=== PATIENT | female | born 1985 | race Caucasian/White ===

== ENCOUNTER 2017-06-04 08:40 | Emergency (ER) | payer BC, SELFPAY ==
--- NOTE | 2017-06-04 09:14 | RAD ---
PORTABLE AP CHEST XRAY: DATE: 06/04/17. HISTORY: Cough, flu-like symptoms. COMPARISON: 07/07/14. FINDINGS: Cardiac silhouette and pulmonary vasculature are within normal limits. The lungs remain clear. Ther e has been no interval change from the prior study. IMPRESSION: No acute cardiopulmonary process. POS: [facility]
[2017-06-04] MEDS ORDERED: Ibuprofen 800 MG TAB ONE (09:26)
[2017-06-04] MEDS ORDERED: Acetaminophen 500 MG TAB ONE (09:26)
[2017-06-04 09:56] LABS: #Lymphocytes 0.5 thou/uL (1.20-3.40); #Monocytes 0.4 thou/uL (0.11-0.59); #Neutrophils 12.2 thou/uL (1.40-6.50); %Basophils 0.1 % (0.0-1.0); %Eosinophils 0.2 % (0.0-10.0); %Lymphocytes 3.9 % (21.0-51.0); %Neutrophils 92.8 % (42.0-75.0); Hemoglobin 14.4 g/dL (12.0-16.0); Mean Corpuscular HGB CONC 32.4 g/dL (32.0-36.0); Mean Corpuscular Hemoglobin 29.2 pg (27.0-31.0); Mean Corpuscular Volume 90.2 fl (81.0-99.0); Mean Platelet Volume 8.5 fL (7.4-10.4); Platelet Count 229 thou/uL (130-400); Red Blood Cell (RBC) Count 4.95 mill/uL (4.20-5.40); White Blood Cell (WBC) Count 13.2 thou/uL (4.8-10.8)
[2017-06-04 10:13] LABS: ALT (SGPT) 11 U/L (8-55); AST (SGOT) 10 U/L (5-34); Albumin 4.1 g/dL (3.5-5.0); Alkaline Phosphatase 116 U/L (40-150); Anion Gap 13 mmol/L (10-20); BUN (Urea Nitrogen) 7 mg/dL (7.0-18.7); Bilirubin, Total 0.4 mg/dL (0.2-1.2); Calc. Creatinine Clearance 0 mL/min (70-130); Calcium 9.4 mg/dL (7.8-10.44); Carbon Dioxide 21 mmol/L (22-29); Chloride 104 mmol/L (98-107); Estimated GFR-MDRD Greater than 90; Globulin 3.9 g/dL (2.4-3.5); Glucose 124 mg/dL (70-105); Sodium 134 mmol/L (136-145)
[2017-06-04] MEDS ORDERED: Ondansetron HCl/PF 4 MG/2 ML Vial ONE (11:32)
== END 2017-06-04 11:35 | disposition home or self-care (01) ==
LOC: ERS 08:40
DX: E86.0 Dehydration (principal); B34.9 Viral infection, unspecified
CPT/HCPCS: 36415; 71045; 80053; 85025; 93005; 96361; 96374; J2405

== ENCOUNTER 2017-08-28 09:50 | Emergency (ER) | payer BC ==
[2017-08-28 11:07] LABS: Bilirubin Negative (Negative); Blood, Urine Negative (Negative); Glucose, Urine (Dipstick) Negative (Negative); Leukocyte Trace (Negative); Nitrite Negative (Negative); Protein, Urine (Dipstick) Negative (Neg-Trace); Urobilinogen 0.2 mg/dL (0.2-1.0)
--- NOTE | 2017-08-28 11:07 | RAD ---
FRONTAL RADIOGRAPH CHEST: DATE: 08/28/17. COMPARISON: 06/04/17. HISTORY: Dizziness, weakness, chest pain. FINDINGS: There is no pneumothorax or pleural fluid. There is no focal consolidation or alveolar edema. Heart and mediastinal contours appear grossly unremarkable. Osseous structures appear intact. IMPRESSION: No acute findings. POS: [facility]
[2017-08-28 11:09] LABS: Clarity Clear (Clear)
[2017-08-28 11:27] LABS: Bacteria/HPF 1+ HPF (None Seen); Hyaline Casts/LPF NONE SEEN LPF (0-3 Hyaline); RBC/HPF 0-3 HPF (0-3)
[2017-08-28 11:37] LABS: #Basophils 0.1 thou/uL (0.0-0.2); #Eosinphils 0.2 thou/uL (0.0-0.7); #Lymphocytes 2.3 thou/uL (1.20-3.40); #Monocytes 0.7 thou/uL (0.11-0.59); #Neutrophils 10.8 thou/uL (1.40-6.50); %Basophils 0.4 % (0.0-1.0); %Eosinophils 1.5 % (0.0-10.0); %Lymphocytes 16.4 % (21.0-51.0); %Monocytes 4.9 % (0.0-10.0); %Neutrophils 76.8 % (42.0-75.0); Hemoglobin 15.5 g/dL (12.0-16.0); Mean Corpuscular HGB CONC 33.2 g/dL (32.0-36.0); Mean Corpuscular Hemoglobin 29.2 pg (27.0-31.0); Mean Corpuscular Volume 88.1 fl (81.0-99.0); Mean Platelet Volume 9.5 fL (7.4-10.4); Platelet Count 284 thou/uL (130-400); RBC Distribution Width 13.2 % (11.5-14.5); White Blood Cell (WBC) Count 14.1 thou/uL (4.8-10.8)
[2017-08-28 12:05] LABS: CKMB 0.5 ng/mL (0-6.6); Troponin I Less than 0.010 ng/mL (< 0.028)
[2017-08-28 12:06] LABS: ALT (SGPT) 10 U/L (8-55); AST (SGOT) 9 U/L (5-34); Albumin 4.3 g/dL (3.5-5.0); Alkaline Phosphatase 123 U/L (40-150); Anion Gap 13 mmol/L (10-20); BUN (Urea Nitrogen) 14 mg/dL (7.0-18.7); Bilirubin, Total 0.3 mg/dL (0.2-1.2); Calc. Creatinine Clearance 0 mL/min (70-130); Carbon Dioxide 24 mmol/L (22-29); Chloride 104 mmol/L (98-107); Estimated GFR-MDRD Greater than 90; Globulin 4.1 g/dL (2.4-3.5); Glucose 99 mg/dL (70-105); Potassium 4.3 mmol/L (3.5-5.1); Protein, Total 8.4 g/dL (6.0-8.3); Sodium 137 mmol/L (136-145)
[2017-08-28 12:21] LABS: BHCG - Serum Negative (NEGATIVE); Pregs Control Background? CLEAR/WHITE (CLR/WHITE); Pregs Control Bar Appear? YES (CONTROL BAR)
[2017-08-28] MEDS ORDERED: Meclizine HCl 25 MG TAB ONE (12:29)
== END 2017-08-28 13:57 | disposition home or self-care (01) ==
LOC: ERS 09:50
DX: R42 Dizziness and giddiness (principal); I10 Essential (primary) hypertension; E66.9 Obesity, unspecified
CPT/HCPCS: 71045; 80053; 81003; 81015; 82553; 84484; 84703; 85025; 85379; 87086; 93005; 96360

== ENCOUNTER 2019-01-31 15:26 | Outpatient (CLI) | payer OTHER ==
--- NOTE | 2019-01-31 15:56 | ULT ---
Thyroid ultrasound: 01/31/2019 HISTORY: 34-year-old female with a history of surgical removal of the thyroid isthmus and right thyro id lobe. Evaluate for thyroid nodule TECHNIQUE: Multiplanar grayscale sonographic imaging of the thyroid gland obtained. FINDINGS: The isthmus and right lobe of the thyroid gland are absent, consistent with the patient's s urgical history. The left lobe measures 3.3 x 5.3 x 3.0 cm. There is a complex dominant solid and cystic mass within the mid/lower aspect of the left lobe of the thyroid gland measuring 2.9 x 3.9 x 2 .9 cm. It demonstrates peripheral soft tissue component with internal blood flow. No associated calcification. IMPRESSION: TI-RADS Category 4 lesion (moderately suspicious) within the left lobe. Given size greate r than 1.5 cm, fine-needle aspiration advised.
== END 2019-01-31 15:27 | disposition home or self-care (01) ==
LOC: BICULT 15:26
PROVIDERS: ATTEND Family Medicine
DX: E04.1 Nontoxic single thyroid nodule (principal)
CPT/HCPCS: 76536

== ENCOUNTER 2019-03-25 11:53 | Day surgery (SDC) | payer OTHER ==
[2019-03-24 16:17] VITALS: BMI 70.9
[2019-03-25] MEDS ORDERED: Sodium Bicarbonate 2.5 MEQ/5 ML VIAL ONE (11:58)
--- NOTE | 2019-03-25 13:06 | ULT ---
Thyroid mass fine needle aspiration sonographic guided HISTORY: Left thyroid lobe mass. FINDINGS: After explaining the procedure and answering all questions, sonographic evaluation again sh ows a large complex left thyroid lobe mass. Sterile technique, buffered local anesthesia, sonographic guidance, and a lateral approach were used to carefully advance a 25-gauge needle into the complex left thyroid lobe mass. A total of 4 aspirates were obtained and submitted to pathology for processing. Postprocedure imaging shows no oneyda dence of complication. Patient tolerated the procedure well and was dismissed in good condition. IMPRESSION: Technically successful sonographic guided FNA left thyroid lobe mass. Pathology is pendin g.
== END 2019-03-25 12:45 | disposition home or self-care (01) ==
LOC: ULT 11:53
PROVIDERS: ATTEND Specialist
PROC: 0G9G3ZX Drainage of Left Thyroid Gland Lobe, Percutaneous Approach, Diagnostic (ICD-10-PCS; principal; 2019-03-25)
DX: E04.1 Nontoxic single thyroid nodule (principal); E11.9 Type 2 diabetes mellitus without complications; F41.9 Anxiety disorder, unspecified; F32.9 Major depressive disorder, single episode, unspecified; Z88.0 Allergy status to penicillin; Z88.8 Allergy status to other drugs, medicaments and biological substances
CPT/HCPCS: 60100; 76942; 88173

== ENCOUNTER 2021-04-28 17:00 | Inpatient (IN) | payer OTHER, SELFPAY ==
[2021-04-26 11:35] VITALS: BMI 75.3
[2021-05-05] MEDS ORDERED: Xylocaine 1% w/ Epi 1:100K 10 ML VIAL ONE (06:53)
[2021-05-05] MEDS ORDERED: Bupivacaine 0.25% HCL 30 ML VIAL ONE (06:53)
[2021-05-05] MEDS ORDERED: Fentanyl 100 MCG/2 ML VIAL ONE ×3 (07:00→10:38)
[2021-05-05] MEDS ORDERED: SUGAMMADEX SODIUM 200 MG/2 ML VIAL ONE ×2 (07:00→07:34)
[2021-05-05] MEDS ORDERED: Ketamine 50 MG/ML (10ML VIAL) ONE (07:00)
[2021-05-05] MEDS ORDERED: Levofloxacin 500 mg/D5W 100 ml Premix Bag ONE (07:29)
[2021-05-05] MEDS ORDERED: Lidocaine 1% PF 5 ML VIAL ONE (07:46)
[2021-05-05] MEDS ORDERED: PROPOFOL 200 MG/20 ML VIAL ONE (07:46)
[2021-05-05] MEDS ORDERED: Rocuronium Bromide 10 MG/ML (10ML VIAL) ONE (07:46)
[2021-05-05] MEDS ORDERED: Ketorolac Tromethamine 30 MG/ML VIAL ONE (07:46)
[2021-05-05] MEDS ORDERED: PHENYLEPHRINE-NS 100 MCG/ML 10 ML SYRINGE ONE (07:46)
[2021-05-05] MEDS ORDERED: ePHEDrine 50 MG/ML VIAL ONE (07:46)
[2021-05-05] MEDS ORDERED: Ondansetron PF 4 MG/2 ML Vial ONE (07:46)
[2021-05-05] MEDS ORDERED: Glycopyrrolate 0.2 MG/ML 5 ML SYRINGE ONE (07:46)
[2021-05-05] MEDS ORDERED: Promethazine HCl 25 MG/ML VIAL IVPB PRN (08:54)
[2021-05-05] MEDS ORDERED: Promethazine HCl 25 MG/ML VIAL IM PRN ×2 (08:54→09:24)
[2021-05-05] MEDS ORDERED: Ondansetron HCl/PF 4 MG/2 ML Vial IVP PRN (08:54)
[2021-05-05] MEDS ORDERED: diphenhydrAMINE 50 MG/ML VIAL IM PRN (09:24)
[2021-05-05] MEDS ORDERED: diphenhydrAMINE 50 MG/ML VIAL IVP PRN ×2 (09:24→12:00)
[2021-05-05] MEDS ORDERED: Naloxone HCl 0.4 mg/ml Vial IV PRN (09:24)
[2021-05-05] MEDS ORDERED: fentaNYL Citrate/PF 2,000 MCG in Sodium Chloride 0.9% 60 ML IV PRN (09:24)
[2021-05-05] MEDS ORDERED: diphenhydrAMINE 25 MG CAP PO PRN (09:24)
[2021-05-05] MEDS ORDERED: Zolpidem Tartrate 5 MG TAB PO PRN (09:24)
[2021-05-05] MEDS ORDERED: Promethazine HCl 25 MG/ML VIAL ONE (09:26)
[2021-05-05] MEDS ORDERED: Communication Order-Pharmacy FS PRN (09:30)
[2021-05-05] MEDS ORDERED: Hydrocodone-Acetamin 15 ML UDCUP PO PRN (12:00)
[2021-05-05] MEDS ORDERED: Dextrose 5% in Water 1,000 ML IV PRN (12:00)
[2021-05-05] MEDS ORDERED: Dextrose 50% Abboject 50 ML SYRINGE SLOW IVP PRN ×2 (12:00)
[2021-05-05] MEDS ORDERED: Ondansetron PF 4 MG/2 ML Vial IVP PRN (12:00)
[2021-05-05] MEDS ORDERED: hydrALAZINE 20 MG/ML VIAL SLOW IVP PRN (12:00)
[2021-05-05] MEDS: Sodium Chloride 0.9% 1,000 ML IV SCH (12:21)
[2021-05-05] MEDS: Ondansetron PF 4 MG/2 ML Vial IVP PRN ×2 (12:21→18:11)
[2021-05-05] MEDS: Promethazine HCl 25 MG/ML VIAL IM PRN ×2 (15:17→22:23)
[2021-05-05] MEDS: HumaLOG 300 UNITS/3 ML VIAL SC PRN ×2 (15:57→22:23)
[2021-05-05 16:26] LABS: Hemoglobin 12.4 g/dL (12.0-16.0)
[2021-05-05] MEDS ORDERED: Enoxaparin Sodium 40 MG/0.4 ML SYRINGE SC SCH (21:00)
[2021-05-05] MEDS ORDERED: Fentanyl 100 MCG/2 ML VIAL SLOW IVP PRN (22:05)
[2021-05-05] MEDS ORDERED: Pantoprazole 40 MG VIAL IVP SCH (22:15)
[2021-05-06] MEDS: Sodium Chloride 0.9% 1,000 ML IV SCH (02:31)
[2021-05-06] MEDS: HumaLOG 300 UNITS/3 ML VIAL SC PRN ×2 (06:05→11:39)
[2021-05-06] MEDS: Ondansetron PF 4 MG/2 ML Vial IVP PRN ×2 (06:06→10:47)
[2021-05-06] MEDS: Hydrocodone-Acetamin 15 ML UDCUP PO PRN ×3 (06:06→16:06)
[2021-05-06 06:45] LABS: #Eosinphils 0.1 thou/uL (0.0-0.7); #Lymphocytes 2.2 thou/uL (1.20-3.40); #Monocytes 1.4 thou/uL (0.11-0.59); #Neutrophils 15.3 thou/uL (1.40-6.50); %Basophils 0.1 % (0.0-1.0); %Eosinophils 0.3 % (0.0-10.0); %Lymphocytes 11.7 % (21.0-51.0); %Monocytes 7.3 % (0.0-10.0); %Neutrophils 80.6 % (42.0-75.0); Hemoglobin 11.3 g/dL (12.0-16.0); Mean Corpuscular HGB CONC 31.8 g/dL (32.0-36.0); Mean Corpuscular Hemoglobin 28.6 pg (27.0-31.0); Mean Corpuscular Volume 89.9 fL (78.0-98.0); Mean Platelet Volume 9.8 fL (7.4-10.4); Platelet Count 277 thou/uL (130-400); RBC Distribution Width 13.6 % (11.5-14.5); Red Blood Cell (RBC) Count 3.94 mill/uL (4.20-5.40)
[2021-05-06 07:04] LABS: Anion Gap 13 mmol/L (10-20); BUN (Urea Nitrogen) 10 mg/dL (7.0-18.7); Calc. Creatinine Clearance 309 mL/min (70-130); Calcium 8.9 mg/dL (7.8-10.44); Carbon Dioxide 16 mmol/L (22-29); Chloride 111 mmol/L (98-107); Glucose 229 mg/dL (70-105); Potassium 4.3 mmol/L (3.5-5.1); Sodium 136 mmol/L (136-145)
[2021-05-06] MEDS ORDERED: Pantoprazole 40 MG VIAL IVP SCH (09:00)
[2021-05-06] MEDS ORDERED: Fluticasone Propionate Nasal Spray 16 gm Bottle NASAL SCH (09:00)
[2021-05-06 16:05] VITALS: BP 163/87; TEMP 98.8
[2021-05-06] MEDS ORDERED: Enoxaparin Sodium 40 MG/0.4 ML SYRINGE SC SCH (21:00)
== END 2021-05-06 16:41 | disposition home or self-care (01) | DRG 621 ==
LOC: SURG A 05-05 05:53
PROVIDERS: ADMIT Surgery; ATTEND Surgery
PROC: 0DB64Z3 Excision of Stomach, Percutaneous Endoscopic Approach, Vertical (ICD-10-PCS; principal; 2021-05-05)
PROC: 8E0W4CZ Robotic Assisted Procedure of Trunk Region, Percutaneous Endoscopic Approach (ICD-10-PCS; 2021-05-05)
DX: E66.01 Morbid (severe) obesity due to excess calories (principal); Z68.45 Body mass index [BMI] 70 or greater, adult; Z20.822 Contact with and (suspected) exposure to COVID-19; I10 Essential (primary) hypertension; F41.9 Anxiety disorder, unspecified; E11.9 Type 2 diabetes mellitus without complications; E89.0 Postprocedural hypothyroidism; Z90.49 Acquired absence of other specified parts of digestive tract; Z79.899 Other long term (current) drug therapy; Z79.51 Long term (current) use of inhaled steroids; Z80.9 Family history of malignant neoplasm, unspecified; Z88.8 Allergy status to other drugs, medicaments and biological substances
CPT/HCPCS: 36415; 36416; 80048; 85014; 85018; 85025; 88307; 88342; 93005; 93010; C9113; J1650; J1815; J1885; J1956; J2405; J2550; J2704; J3010; J3490; J7050; S0020

== ENCOUNTER 2021-05-02 17:14 | Outpatient (CLI) | payer SELFPAY ==
[2021-05-03 17:56] LABS: SARS-CoV-2 PCR by NAA Not Detected (NotDetected)
== END 2021-05-02 17:15 | disposition home or self-care (01) ==
LOC: LABBT 17:14
PROVIDERS: ATTEND Surgery
DX: Z01.818 Encounter for other preprocedural examination (principal); E66.01 Morbid (severe) obesity due to excess calories; Z20.822 Contact with and (suspected) exposure to COVID-19
CPT/HCPCS: U0003; U0005

== ENCOUNTER 2021-05-11 02:44 | Emergency (ER) | payer OTHER, SELFPAY ==
[2021-05-11 03:31] LABS: #Eosinphils 0.2 thou/uL (0.0-0.7); #Lymphocytes 1.8 thou/uL (1.20-3.40); #Monocytes 0.9 thou/uL (0.11-0.59); #Neutrophils 11.7 thou/uL (1.40-6.50); %Basophils 0.1 % (0.0-1.0); %Eosinophils 1.5 % (0.0-10.0); %Lymphocytes 12.5 % (21.0-51.0); %Monocytes 6.1 % (0.0-10.0); %Neutrophils 79.9 % (42.0-75.0); Hemoglobin 10.8 g/dL (12.0-16.0); Mean Corpuscular HGB CONC 33.1 g/dL (32.0-36.0); Mean Corpuscular Hemoglobin 29.2 pg (27.0-31.0); Mean Corpuscular Volume 88.2 fL (78.0-98.0); Mean Platelet Volume 9.2 fL (7.4-10.4); Platelet Count 294 thou/uL (130-400); RBC Distribution Width 13.4 % (11.5-14.5); White Blood Cell (WBC) Count 14.7 thou/uL (4.8-10.8)
[2021-05-11] MEDS ORDERED: Morphine 4 MG/ML VIAL ONE ×2 (03:46→06:25)
[2021-05-11 03:51] LABS: ALT (SGPT) 16 U/L (8-55); AST (SGOT) 13 U/L (5-34); Albumin 3.6 g/dL (3.5-5.0); Alkaline Phosphatase 121 U/L (40-110); Anion Gap 15 mmol/L (10-20); BUN (Urea Nitrogen) 8 mg/dL (7.0-18.7); Bilirubin, Total 1.2 mg/dL (0.2-1.2); Calc. Creatinine Clearance 0 mL/min (70-130); Calcium 9.1 mg/dL (7.8-10.44); Carbon Dioxide 23 mmol/L (22-29); Chloride 104 mmol/L (98-107); Globulin 2.9 g/dL (2.4-3.5); Glucose 171 mg/dL (70-105); Potassium 3.5 mmol/L (3.5-5.1); Protein, Total 6.5 g/dL (6.0-8.3); Sodium 138 mmol/L (136-145)
[2021-05-11] MEDS ORDERED: Furosemide 40 MG/4 ML VIAL ONE (05:43)
[2021-05-11] MEDS ORDERED: Nitroglycerin 50 MG/250 ML BOT 250 ML ONE (05:43)
[2021-05-11 07:24] LABS: Troponin I Less than 0.010 ng/mL (< 0.028)
== END 2021-05-11 09:21 | disposition short-term general hospital (02) ==
LOC: ERS 02:44
DX: R07.9 Chest pain, unspecified (principal); I10 Essential (primary) hypertension; E66.9 Obesity, unspecified
CPT/HCPCS: 36415; 71045; 80053; 84484; 85025; 93005; 93970; 96374; 96376; J1940; J2270

== ENCOUNTER 2021-05-11 15:40 | Observation (INO) | payer OTHER ==
[2021-05-11] MEDS ORDERED: Dextrose 50% Abboject 50 ML SYRINGE SLOW IVP PRN (20:00)
[2021-05-11] MEDS ORDERED: Dextrose 5% in Water 1,000 ML IV PRN (20:00)
[2021-05-11] MEDS ORDERED: hydrALAZINE 20 MG/ML VIAL SLOW IVP PRN (20:00)
[2021-05-11] MEDS ORDERED: Promethazine HCl 25 MG/ML VIAL IM PRN (20:00)
[2021-05-11] MEDS ORDERED: Acetaminophen 325 MG TAB PO PRN (20:00)
[2021-05-11] MEDS ORDERED: HumaLOG 300 UNITS/3 ML VIAL SC PRN (20:00)
[2021-05-11] MEDS: Enoxaparin Sodium 40 MG/0.4 ML SYRINGE SC SCH (20:24)
[2021-05-11] MEDS: Sodium Chloride 0.9% 1,000 ML IV SCH (20:24)
[2021-05-11] MEDS: Ondansetron PF 4 MG/2 ML Vial IVP PRN (20:25)
[2021-05-11] MEDS: Morphine 4 MG/ML VIAL SLOW IVP PRN ×2 (20:25→23:14)
[2021-05-11 20:32] VITALS: BMI 74.9
[2021-05-11] MEDS: Hydrocodone-Acetamin 15 ML UDCUP PO PRN (21:26)
[2021-05-12] MEDS: Ondansetron PF 4 MG/2 ML Vial IVP PRN ×3 (02:19→23:54)
[2021-05-12] MEDS: Morphine 4 MG/ML VIAL SLOW IVP PRN ×5 (02:19→23:54)
[2021-05-12] MEDS: Hydrocodone-Acetamin 15 ML UDCUP PO PRN ×3 (03:46→19:16)
[2021-05-12] MEDS: Acetaminophen 650 MG/20.3 ML UDCUP PO PRN ×2 (06:58→20:44)
[2021-05-12 07:18] LABS: #Eosinphils 0.3 thou/uL (0.0-0.7); #Lymphocytes 1.5 thou/uL (1.20-3.40); #Monocytes 0.7 thou/uL (0.11-0.59); #Neutrophils 8.8 thou/uL (1.40-6.50); %Basophils 0.3 % (0.0-1.0); %Eosinophils 2.4 % (0.0-10.0); %Monocytes 6.4 % (0.0-10.0); Mean Corpuscular HGB CONC 32.6 g/dL (32.0-36.0); Mean Corpuscular Volume 88.8 fL (78.0-98.0); Mean Platelet Volume 9.4 fL (7.4-10.4); Platelet Count 285 thou/uL (130-400); RBC Distribution Width 13.4 % (11.5-14.5); Red Blood Cell (RBC) Count 3.45 mill/uL (4.20-5.40); White Blood Cell (WBC) Count 11.3 thou/uL (4.8-10.8)
[2021-05-12 07:23] LABS: Anion Gap 12 mmol/L (10-20); BUN (Urea Nitrogen) 7 mg/dL (7.0-18.7); Calc. Creatinine Clearance 372 mL/min (70-130); Calcium 9.2 mg/dL (7.8-10.44); Carbon Dioxide 24 mmol/L (22-29); Chloride 105 mmol/L (98-107); Glucose 155 mg/dL (70-105); Potassium 3.3 mmol/L (3.5-5.1); Sodium 138 mmol/L (136-145)
[2021-05-12] MEDS: Fluticasone Propionate Nasal Spray 16 gm Bottle NASAL SCH (08:51)
[2021-05-12] MEDS: Enoxaparin Sodium 40 MG/0.4 ML SYRINGE SC SCH ×2 (08:51→20:44)
[2021-05-12] MEDS: Sodium Chloride 0.9% 1,000 ML IV SCH ×2 (08:51→23:54)
[2021-05-12] MEDS: Pantoprazole 40 MG VIAL IVP SCH (08:52)
[2021-05-12 15:50] LABS: Bacteria/HPF None Seen HPF (None Seen); Bilirubin 1+ (Negative); Blood, Urine Trace (Negative); Clarity Turbid (Clear); Glucose, Urine (Dipstick) Normal (Negative); Ketone, Urine 40 mg/dL (Negative); Leukocyte 75 Leu/uL (Negative); Nitrite Negative (Negative); Protein, Urine (Dipstick) 70 mg/dL (Neg-Trace); RBC/HPF 0-3 HPF (0-3); Specific Gravity, Urine 1.031 (1.002-1.036); Squamous Epithelial 21-50 HPF (0-3)
[2021-05-12] MEDS: Cyclobenzaprine 10 MG TAB PO PRN (18:09)
[2021-05-13] MEDS: Cyclobenzaprine 10 MG TAB PO PRN ×2 (02:30→12:26)
[2021-05-13] MEDS: Hydrocodone-Acetamin 15 ML UDCUP PO PRN (04:43)
[2021-05-13] MEDS: Morphine 4 MG/ML VIAL SLOW IVP PRN (07:12)
[2021-05-13] MEDS: Fluticasone Propionate Nasal Spray 16 gm Bottle NASAL SCH (09:57)
[2021-05-13] MEDS: Enoxaparin Sodium 40 MG/0.4 ML SYRINGE SC SCH (10:04)
[2021-05-13] MEDS: Pantoprazole 40 MG VIAL IVP SCH (10:04)
[2021-05-13] MEDS: Acetaminophen 650 MG/20.3 ML UDCUP PO PRN (10:08)
[2021-05-13 12:28] VITALS: BP 129/92; TEMP 98.2
== END 2021-05-13 12:50 | disposition home or self-care (01) ==
LOC: SURG A 15:40 → ERHOLD 05-12 17:47 → SURG A 05-12 17:48
PROVIDERS: ADMIT Surgery; ATTEND Surgery
DX: G89.18 Other acute postprocedural pain (principal); R10.11 Right upper quadrant pain; R07.9 Chest pain, unspecified; R11.2 Nausea with vomiting, unspecified; E11.9 Type 2 diabetes mellitus without complications; J30.2 Other seasonal allergic rhinitis; E66.01 Morbid (severe) obesity due to excess calories; Z68.45 Body mass index [BMI] 70 or greater, adult; Z79.4 Long term (current) use of insulin; Z79.899 Other long term (current) drug therapy; Z88.0 Allergy status to penicillin; Z88.8 Allergy status to other drugs, medicaments and biological substances; Z98.84 Bariatric surgery status
CPT/HCPCS: 36415; 36416; 80048; 81001; 85025; 96372; 96374; 96375; 96376; C9113; G0378; J1650; J1956; J2270; J2405; J2550; J7050

== ENCOUNTER 2022-09-18 08:50 | Inpatient (IN) | payer OTHER ==
[2022-09-18] MEDS ORDERED: Iopamidol-370 76% 500 ML MDV (1 ML CHARGE) ONE (09:20)
[2022-09-18 09:37] LABS: #Eosinphils 0.2 thou/uL (0.0-0.7); #Monocytes 0.6 thou/uL (0.11-0.59); #Neutrophils 9.5 thou/uL (1.40-6.50); %Basophils 0.2 % (0.0-1.0); %Eosinophils 1.6 % (0.0-10.0); %Lymphocytes 18.7 % (21.0-51.0); %Monocytes 4.8 % (0.0-10.0); %Neutrophils 74.1 % (42.0-75.0); Mean Corpuscular HGB CONC 33.4 g/dL (32.0-36.0); Mean Corpuscular Volume 86.8 fl (78.0-98.0); Mean Platelet Volume 11.7 fL (7.4-10.4); Platelet Count 306 10x3/uL (130-400); RBC Distribution Width 13.6 % (11.5-14.5); Red Blood Cell (RBC) Count 5.17 mill/uL (4.20-5.40); White Blood Cell (WBC) Count 12.9 10x3/uL (4.8-10.8)
[2022-09-18 10:01] LABS: ALT (SGPT) 12 U/L (8-55); AST (SGOT) 15 U/L (5-34); Albumin 4.2 g/dL (3.5-5.0); Alkaline Phosphatase 128 U/L (40-110); Anion Gap 18 mmol/L (10-20); BUN (Urea Nitrogen) 11 mg/dL (7.0-18.7); Bilirubin, Total 0.3 mg/dL (0.2-1.2); Calc. Creatinine Clearance 0 mL/min (70-130); Calcium 9.5 mg/dL (7.8-10.44); Carbon Dioxide 16 mmol/L (22-29); Chloride 109 mmol/L (98-107); Estimated GFR 99; Globulin 3.4 g/dL (2.4-3.5); Glucose 172 mg/dL (70-105); Potassium 4.2 mmol/L (3.5-5.1); Protein, Total 7.6 g/dL (6.0-8.3); Sodium 139 mmol/L (136-145)
[2022-09-18 12:23] LABS: BHCG - Serum Negative (NEGATIVE); Pregs Control Background? CLEAR/WHITE (CLR/WHITE); Pregs Control Bar Appear? YES (CONTROL BAR)
[2022-09-18 12:31] LABS: Magnesium 1.6 mg/dL (1.6-2.6)
[2022-09-18] MEDS ORDERED: Ketorolac Tromethamine 30 MG/ML VIAL ONE (13:31)
[2022-09-18 13:40] LABS: Bacteria/HPF None Seen HPF (None Seen); Bilirubin Negative (Negative); Blood, Urine Negative (Negative); CAUTI Indications for Culture Pelvic or flank pain; Clarity Clear (Clear); Glucose, Urine (Dipstick) Normal (Negative); Ketone, Urine Trace mg/dL (Negative); Leukocyte Negative Leu/uL (Negative); Nitrite Negative (Negative); Protein, Urine (Dipstick) Negative (Neg-Trace); RBC/HPF 0-3 HPF (0-3); Specific Gravity, Urine 1.019 (1.002-1.036); Urobilinogen Normal mg/dL (Less than 2); WBC/HPF 0-3 HPF (0-3); pH, Urine 6.5 (5.0-9.0)
[2022-09-18 13:43] LABS: Urine Culture Reflex No No
[2022-09-18] MEDS ORDERED: Dextrose 50% Abboject 50 ML SYRINGE SLOW IVP PRN (14:55)
[2022-09-18] MEDS ORDERED: Glucagon 1 MG/ML KIT IM PRN (14:55)
[2022-09-18] MEDS ORDERED: Dextrose 5% in Water 1,000 ML IV PRN (14:55)
[2022-09-18] MEDS ORDERED: HumaLOG 300 UNITS/3 ML VIAL SC PRN ×2 (14:55)
[2022-09-18] MEDS ORDERED: Atenolol 25 MG TAB PO SCH (15:15)
[2022-09-18] MEDS: Acetaminophen 325 MG TAB PO PRN (20:31)
[2022-09-18] MEDS ORDERED: Insulin Glargine 30 UNITS/0.3 ML VIAL SC SCH (21:00)
[2022-09-18] MEDS ORDERED: Loratadine/Pseudoephedrine 10/240 mg Tablet PO SCH (23:00)
[2022-09-18 23:14] VITALS: BMI 66.1
[2022-09-19] MEDS ORDERED: Loratadine 10 MG TAB PO SCH (00:30)
[2022-09-19 05:19] LABS: #Eosinphils 0.3 thou/uL (0.0-0.7); #Monocytes 0.7 thou/uL (0.11-0.59); #Neutrophils 7.5 thou/uL (1.40-6.50); %Basophils 0.4 % (0.0-1.0); %Eosinophils 2.5 % (0.0-10.0); %Lymphocytes 21.6 % (21.0-51.0); %Monocytes 6.4 % (0.0-10.0); %Neutrophils 68.4 % (42.0-75.0); Hemoglobin 13.1 g/dL (12.0-16.0); Mean Corpuscular HGB CONC 32.8 g/dL (32.0-36.0); Mean Corpuscular Hemoglobin 29.1 pg (27.0-31.0); Mean Corpuscular Volume 88.7 fl (78.0-98.0); Mean Platelet Volume 11.5 fL (7.4-10.4); Platelet Count 271 10x3/uL (130-400); RBC Distribution Width 13.9 % (11.5-14.5)
[2022-09-19 05:39] LABS: Anion Gap 10 mmol/L (10-20); BUN (Urea Nitrogen) 11 mg/dL (7.0-18.7); Calc. Creatinine Clearance 280 mL/min (70-130); Calcium 9.6 mg/dL (7.8-10.44); Carbon Dioxide 23 mmol/L (22-29); Chloride 107 mmol/L (98-107); Estimated GFR 111; Glucose 111 mg/dL (70-105); Potassium 3.6 mmol/L (3.5-5.1); Sodium 136 mmol/L (136-145)
[2022-09-19] MEDS ORDERED: Atenolol 25 MG TAB PO SCH (09:00)
[2022-09-19 11:51] VITALS: BP 133/77; TEMP 97.7
[2022-09-19] MEDS: Acetaminophen 325 MG TAB PO PRN (12:26)
[2022-09-19] MEDS ORDERED: Loratadine/Pseudoephedrine 10/240 mg Tablet PO SCH (21:00)
== END 2022-09-19 15:30 | disposition home or self-care (01) | DRG 644 ==
LOC: ERS 08:50 → ERHOLD 14:33 → 2NO 19:41
PROVIDERS: ADMIT Internal Medicine; ATTEND Family Medicine
DX: E05.10 Thyrotoxicosis with toxic single thyroid nodule without thyrotoxic crisis or storm (principal); Z68.44 Body mass index [BMI] 60.0-69.9, adult; D72.829 Elevated white blood cell count, unspecified; E66.01 Morbid (severe) obesity due to excess calories; E89.0 Postprocedural hypothyroidism; F41.9 Anxiety disorder, unspecified; E11.9 Type 2 diabetes mellitus without complications; Z98.84 Bariatric surgery status; I10 Essential (primary) hypertension; Z88.1 Allergy status to other antibiotic agents; Z88.8 Allergy status to other drugs, medicaments and biological substances; Z79.899 Other long term (current) drug therapy; Z90.49 Acquired absence of other specified parts of digestive tract; Z90.721 Acquired absence of ovaries, unilateral
CPT/HCPCS: 36415; 36416; 71045; 71275; 76536; 80048; 80053; 81001; 83605; 83735; 83880; 84238; 84439; 84443; 84445; 84481; 84484; 84703; 85025; 93005; 93306; 96361; 96374; J1815; J1885; Q9967

== ENCOUNTER → 2022-11-29 | Day surgery (SDC) | payer OTHER ==
[~2022-11-29] MED LIST: Lidocaine 1% PF 5 ML VIAL ONE; Sodium Bicarbonate 2.5 MEQ/5 ML VIAL ONE
[2022-11-29 13:31] VITALS: BP 123/78
== END ==
LOC: ULT 12:43
PROVIDERS: ATTEND Otolaryngology Plastic Surgery within the Head & Neck
DX: E04.2 Nontoxic multinodular goiter (principal)
CPT/HCPCS: 76536